=== PATIENT | male | born 1970 | race Caucasian/White ===

== ENCOUNTER 2025-03-23 12:56 | Emergency (ER) | payer SELFPAY ==
[2025-03-23 12:58] VITALS: BP 150/94
[2025-03-23] MEDS: TYLENOL 1000 MG PO (13:44)
[2025-03-23 14:15] VITALS: BMI 29.3
[2025-03-23 14:19] VITALS: BP 136/84
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
== END 2025-03-23 14:44 | disposition home or self-care (01) ==
LOC: EMR 12:56
PROVIDERS: EMERGENCY PHYSICIAN Student in an Organized Health Care Education/Training Program; FAMILY PHYSICIAN Family Medicine
DX: S39.012A Strain of muscle, fascia and tendon of lower back, initial encounter (principal); S16.1XXA Strain of muscle, fascia and tendon at neck level, initial encounter; R51.9 Headache, unspecified; V43.52XA Car driver injured in collision with other type car in traffic accident, initial encounter; E78.5 Hyperlipidemia, unspecified
CPT/HCPCS: 99284; 70450; 72110; 72125